=== PATIENT | female | born 1945 | race Caucasian/White ===

== ENCOUNTER 2023-12-30 20:38 | Inpatient (IN) | payer MEDICARE, OTHER ==
[~2023-12-30] VITALS: Ht 157.5 cm; Wt 68.9 kg
[2023-12-30 20:50] VITALS: BP 144/65; TEMP 94.4; O2SAT 94
[2023-12-30] MEDS ORDERED: MORPHINE SULFATE INJ 4 MG/ML DISP.SYRIN IV PRN (22:00)
[2023-12-30] MEDS ORDERED: INSULIN REGULAR, HUMAN 100 UNIT/ML 10 ML VIAL SQ SCH (22:00)
[2023-12-30] MEDS ORDERED: ONDANSETRON HCL/PF 4 MG/2 ML VIAL IVP PRN (22:00)
[2023-12-30] MEDS ORDERED: Z GUARD REMEDY 4 OZ OINT TP PRN (22:00)
[2023-12-30] MEDS: BLOOD SUGAR DIAGNOSTIC 1 EACH STRIP IN SCH ×2 (22:51→23:23)
[2023-12-30] MEDS: IV D5/0.45 NACL 1,000 ML IV PRN (22:57)
[2023-12-30] MEDS ORDERED: DEXTROSE 50%-WATER 50 ML DISP.SYRIN IV PRN (23:00)
[2023-12-30] MEDS: INSULIN REGULAR, HUMAN 100 UNIT/ML 3 ML VIAL SQ PRN (23:30)
[2023-12-31 05:58] LABS: BASOPHILS % (AUTO) 0.1 % (0.0-2.0); EOSINOPHILS % (AUTO) 0.3 % (0.0-6.0); HEMATOCRIT 29 % (33-45); HEMOGLOBIN 9.9 g/dL (11.5-14.8); LYMPHOCYTES # (AUTO) 0.3 K/uL (0.8-4.8); LYMPHOCYTES % (AUTO) 4.4 % (20.0-44.0); MEAN CORPUSCULAR HEMOGLOBIN 34 PG (26.0-33.0); MEAN CORPUSCULAR HGB CONC 34 g/dl (31.0-36.0); MEAN CORPUSCULAR VOLUME 99 fL (82-100); MONOCYTES # (AUTO) 0.5 K/uL (0.1-1.30); NEUTROPHILS # (AUTO) 6.8 K/uL (1.8-8.9); NEUTROPHILS % (AUTO) 88.2 % (43.0-81.0); PLATELET COUNT (AUTO) 166 K/uL (150-450); RED BLOOD CELL COUNT(AUTO) 2.94 MIL/uL (4.0-5.2); RED CELL DISTRIBUTION WIDTH 14.8 % (11.5-15.0); WHITE BLOOD COUNT (AUTO) 7.8 K/uL (4.3-11.0)
[2023-12-31 06:30] LABS: ALANINE AMINOTRANSFERASE 22 U/L (12-78); ALBUMIN 2.5 g/dL (3.4-5.0); ALKALINE PHOSPHATASE 75 U/L (46-116); ASPARTATE AMINOTRANSFERASE 28 U/L (15-37); BILIRUBIN,DIRECT 0.7 mg/dL (0.0-0.2); BILIRUBIN,TOTAL 1.8 mg/dL (0.2-1.0); CARBON DIOXIDE 24 mmol/L (21-32); CHLORIDE 97 mmol/L (98-107); GLUCOSE 322 mg/dL (74-106); LIPASE 75 U/L (16-77); PHOSPHORUS 2.8 mg/dL (2.5-4.9); POTASSIUM 4.7 mmol/L (3.5-5.1); SODIUM SERUM 127 mmol/L (136-145); TOTAL PROTEIN, SERUM 5.8 g/dL (6.4-8.2); UREA NITROGEN, BLOOD 12 mg/dL (7-18)
[2023-12-31 06:33] LABS: CHOLESTEROL 109 mg/dL (<200); HDL CHOLESTEROL 20 mg/dL (40-60); LDL 65 mg/dL (0-99); TRIGLYCERIDES 141 mg/dL (30-150)
[2023-12-31 06:48] LABS: CREATININE 0.9 mg/dL (0.6-1.3)
[2023-12-31 06:55] LABS: MAGNESIUM 0.8 mg/dL (1.8-2.4)
[2023-12-31 08:00] VITALS: BP 131/51; TEMP 98.2; O2SAT 95
[2023-12-31] MEDS: PANTOPRAZOLE 40 MG VIAL IV SCH (08:26)
[2023-12-31] MEDS ORDERED: LOSA100T31 PO (09:54)
[2023-12-31] MEDS ORDERED: HYDR12.55 PO (09:54)
[2023-12-31] MEDS ORDERED: INSU3INS9 SQ (09:54)
[2023-12-31] MEDS ORDERED: DEXL60CA3 PO (09:54)
[2023-12-31] MEDS ORDERED: ASPI-1420 PO (09:54)
[2023-12-31] MEDS ORDERED: ALIR75PE SQ (09:54)
[2023-12-31] MEDS ORDERED: LIPA1CAP10 PO (09:54)
[2023-12-31] MEDS ORDERED: METO-357 PO (09:54)
[2023-12-31] MEDS ORDERED: GLIM4TAB37 PO (09:54)
[2023-12-31] MEDS ORDERED: LINA145C PO (09:54)
[2023-12-31] MEDS ORDERED: ATOR40TA PO (09:54)
[2023-12-31] MEDS ORDERED: SITA1TAB6 PO (09:54)
[2023-12-31] MEDS ORDERED: ICOS1CAP PO (09:54)
[2023-12-31 13:58] LABS: URINE SODIUM, RANDOM 38 mmol/l (40-220)
[2023-12-31 16:00] VITALS: BP 129/61; TEMP 98.6; O2SAT 95
[2023-12-31 20:00] VITALS: BP 105/46; TEMP 98.6; O2SAT 97
[2024-01-01 06:33] LABS: BASOPHILS % (AUTO) 0.4 % (0.0-2.0); EOSINOPHILS # (AUTO) 0.1 K/uL (0.0-0.7); EOSINOPHILS % (AUTO) 1.4 % (0.0-6.0); HEMATOCRIT 31 % (33-45); HEMOGLOBIN 10.5 g/dL (11.5-14.8); LYMPHOCYTES # (AUTO) 1.3 K/uL (0.8-4.8); LYMPHOCYTES % (AUTO) 20.2 % (20.0-44.0); MEAN CORPUSCULAR HEMOGLOBIN 33 PG (26.0-33.0); MEAN CORPUSCULAR HGB CONC 34 g/dl (31.0-36.0); MEAN CORPUSCULAR VOLUME 99 fL (82-100); MONOCYTES # (AUTO) 0.5 K/uL (0.1-1.30); MONOCYTES % (AUTO) 8.2 % (2.0-12.0); NEUTROPHILS # (AUTO) 4.4 K/uL (1.8-8.9); NEUTROPHILS % (AUTO) 69.8 % (43.0-81.0); PLATELET COUNT (AUTO) 175 K/uL (150-450); RED BLOOD CELL COUNT(AUTO) 3.15 MIL/uL (4.0-5.2); RED CELL DISTRIBUTION WIDTH 14.6 % (11.5-15.0); WHITE BLOOD COUNT (AUTO) 6.3 K/uL (4.3-11.0)
[2024-01-01 06:52] LABS: ALANINE AMINOTRANSFERASE 35 U/L (12-78); ALBUMIN 2.6 g/dL (3.4-5.0); ALKALINE PHOSPHATASE 72 U/L (46-116); BILIRUBIN,TOTAL 1.6 mg/dL (0.2-1.0); CALCIUM, SERUM 9.6 mg/dL (8.5-10.1); CARBON DIOXIDE 22 mmol/L (21-32); CHLORIDE 102 mmol/L (98-107); CREATININE 0.8 mg/dL (0.6-1.3); GLUCOSE 255 mg/dL (74-106); PHOSPHORUS 2.3 mg/dL (2.5-4.9); POTASSIUM 4.6 mmol/L (3.5-5.1); SODIUM SERUM 131 mmol/L (136-145); TOTAL PROTEIN, SERUM 5.9 g/dL (6.4-8.2); UREA NITROGEN, BLOOD 10 mg/dL (7-18)
[2024-01-01 07:00] VITALS: BP 126/67; TEMP 98.4; O2SAT 94
[2024-01-01 07:19] LABS: ASPARTATE AMINOTRANSFERASE 44 U/L (15-37)
[2024-01-01] MEDS: diphenhydrAMINE HCL 50 MG/ML VIAL IV ONE (09:46)
[2024-01-01] MEDS: Magnesium 1GM/D5W 100ML PREMIX 100 ML IV SCH (11:17)
[2024-01-01] MEDS ORDERED: MVI-12 10ML IV ONE (13:00)
[2024-01-01 13:30] VITALS: BP 129/66; TEMP 98.4; O2SAT 97
[2024-01-01] MEDS: NEUTRA PHOS 1 POWD.PACKET PO ONE (15:43)
[2024-01-01 16:00] VITALS: BP 126/66; TEMP 98.4; O2SAT 97
[2024-01-01 20:00] VITALS: BP_SYST 138; BP_SYST 144; BP_DIAS 51; BP_DIAS 64; TEMP 98.1; TEMP 98.2; O2SAT 96
[2024-01-01 20:30] VITALS: BP 144/51; TEMP 98.1; O2SAT 96
[2024-01-02 07:55] LABS: BASOPHILS % (AUTO) 0.4 % (0.0-2.0); EOSINOPHILS # (AUTO) 0.1 K/uL (0.0-0.7); EOSINOPHILS % (AUTO) 1.6 % (0.0-6.0); HEMATOCRIT 30 % (33-45); HEMOGLOBIN 10.3 g/dL (11.5-14.8); LYMPHOCYTES # (AUTO) 1.3 K/uL (0.8-4.8); MEAN CORPUSCULAR HEMOGLOBIN 34 PG (26.0-33.0); MEAN CORPUSCULAR HGB CONC 34 g/dl (31.0-36.0); MEAN CORPUSCULAR VOLUME 99 fL (82-100); MONOCYTES # (AUTO) 0.5 K/uL (0.1-1.30); MONOCYTES % (AUTO) 8.9 % (2.0-12.0); NEUTROPHILS # (AUTO) 3.9 K/uL (1.8-8.9); NEUTROPHILS % (AUTO) 66.1 % (43.0-81.0); PLATELET COUNT (AUTO) 181 K/uL (150-450); RED BLOOD CELL COUNT(AUTO) 3.05 MIL/uL (4.0-5.2); RED CELL DISTRIBUTION WIDTH 14.9 % (11.5-15.0); WHITE BLOOD COUNT (AUTO) 5.9 K/uL (4.3-11.0)
[2024-01-02] MEDS: MULTIVITAMINS,THERAGRAN 1 UDTAB TABLET PO SCH (08:25)
[2024-01-02 08:33] VITALS: BP 142/64; TEMP 98; O2SAT 97
[2024-01-02 08:52] LABS: ALANINE AMINOTRANSFERASE 37 U/L (12-78); ALBUMIN 2.6 g/dL (3.4-5.0); ALKALINE PHOSPHATASE 80 U/L (46-116); ASPARTATE AMINOTRANSFERASE 43 U/L (15-37); BILIRUBIN,DIRECT 0.9 mg/dL (0.0-0.2); BILIRUBIN,TOTAL 1.7 mg/dL (0.2-1.0); CALCIUM, SERUM 9.5 mg/dL (8.5-10.1); CARBON DIOXIDE 22 mmol/L (21-32); CHLORIDE 107 mmol/L (98-107); CREATININE 0.7 mg/dL (0.6-1.3); GLUCOSE 187 mg/dL (74-106); MAGNESIUM 1.3 mg/dL (1.8-2.4); POTASSIUM 4.6 mmol/L (3.5-5.1); SODIUM SERUM 139 mmol/L (136-145); TOTAL PROTEIN, SERUM 5.9 g/dL (6.4-8.2); UREA NITROGEN, BLOOD 6 mg/dL (7-18)
[2024-01-02] MEDS: Magnesium 1GM/D5W 100ML PREMIX 100 ML IV SCH (09:49)
[2024-01-02] MEDS ORDERED: DIATR MEGLU/DIATRIZOATE SODIUM 30 ML BOTTLE (GASTROGRAPHIN) ONE (11:14)
[2024-01-02] MEDS: ZOSYN IVPB 3.375 G in IV D5W 50ml IV SCH (12:09)
[2024-01-02 16:06] VITALS: BP 146/82; TEMP 97.7; O2SAT 95
[2024-01-02 20:00] VITALS: BP 142/66; TEMP 97.3; O2SAT 97
[2024-01-03 06:58] LABS: BASOPHILS % (AUTO) 0.2 % (0.0-2.0); EOSINOPHILS # (AUTO) 0.1 K/uL (0.0-0.7); EOSINOPHILS % (AUTO) 1.7 % (0.0-6.0); HEMATOCRIT 30 % (33-45); HEMOGLOBIN 10.3 g/dL (11.5-14.8); LYMPHOCYTES # (AUTO) 1.3 K/uL (0.8-4.8); MEAN CORPUSCULAR HEMOGLOBIN 34 PG (26.0-33.0); MEAN CORPUSCULAR HGB CONC 34 g/dl (31.0-36.0); MEAN CORPUSCULAR VOLUME 98 fL (82-100); MONOCYTES # (AUTO) 0.6 K/uL (0.1-1.30); MONOCYTES % (AUTO) 9.6 % (2.0-12.0); NEUTROPHILS # (AUTO) 3.8 K/uL (1.8-8.9); NEUTROPHILS % (AUTO) 65.5 % (43.0-81.0); PLATELET COUNT (AUTO) 183 K/uL (150-450); RED BLOOD CELL COUNT(AUTO) 3.03 MIL/uL (4.0-5.2); RED CELL DISTRIBUTION WIDTH 14.6 % (11.5-15.0); WHITE BLOOD COUNT (AUTO) 5.8 K/uL (4.3-11.0)
[2024-01-03 08:00] VITALS: BP 144/83; TEMP 98.4; O2SAT 96
[2024-01-03 08:00] LABS: ALANINE AMINOTRANSFERASE 33 U/L (12-78); ALBUMIN 2.6 g/dL (3.4-5.0); ALKALINE PHOSPHATASE 79 U/L (46-116); ASPARTATE AMINOTRANSFERASE 37 U/L (15-37); BILIRUBIN,TOTAL 1.8 mg/dL (0.2-1.0); CALCIUM, SERUM 9.8 mg/dL (8.5-10.1); CARBON DIOXIDE 23 mmol/L (21-32); CHLORIDE 103 mmol/L (98-107); CREATININE 0.9 mg/dL (0.6-1.3); GLUCOSE 256 mg/dL (74-106); POTASSIUM 4.4 mmol/L (3.5-5.1); SODIUM SERUM 135 mmol/L (136-145); TOTAL PROTEIN, SERUM 5.8 g/dL (6.4-8.2); UREA NITROGEN, BLOOD 3 mg/dL (7-18)
[2024-01-03] MEDS ORDERED: ALIROCUMAB 75 MG SQ SCH (13:00)
[2024-01-03 16:00] VITALS: BP 153/80; TEMP 98.8; O2SAT 96
[2024-01-03 16:39] VITALS: BP 153/80
[2024-01-03] MEDS: METOPROLOL SUCCINATE 50 MG TAB.SR.24H PO SCH (16:39)
[2024-01-03] MEDS ORDERED: Medication Not On Formulary EA (Icosapent Ethyl (Vascepa) 2 GM) PO SCH (17:00)
[2024-01-04] MEDS ORDERED: LOSARTAN POTASSIUM 50 MG TABLET PO SCH (09:00)
[2024-01-04] MEDS ORDERED: Medication Not On Formulary EA (Linaclotide (Linzess) 145 MCG) PO SCH (09:00)
[2024-01-04] MEDS ORDERED: HYDROCHLOROTHIAZIDE 25 MG TABLET PO SCH (09:00)
[2024-01-04] MEDS ORDERED: Medication Not On Formulary EA (Insulin Glargine/Lixisenatide (Soliqua 100 Unit-33 Mcg/m SQ SCH (09:00)
[2024-01-04] MEDS ORDERED: ASPIRIN EC 81 MG TABLET.DR PO SCH (09:00)
[2024-01-04] MEDS ORDERED: PANTOPRAZOLE 40 MG TABLET.DR PO SCH (09:00)
== END 2024-01-03 17:15 | disposition short-term general hospital (02) | DRG 445 ==
LOC: MED 20:38
PROVIDERS: ADMIT Nurse Practitioner Family; ATTEND Student in an Organized Health Care Education/Training Program
DX: K80.66 Calculus of gallbladder and bile duct with acute and chronic cholecystitis without obstruction (principal); E44.0 Moderate protein-calorie malnutrition; E87.1 Hypo-osmolality and hyponatremia; R17 Unspecified jaundice; E11.9 Type 2 diabetes mellitus without complications; D63.8 Anemia in other chronic diseases classified elsewhere; E66.9 Obesity, unspecified; E78.5 Hyperlipidemia, unspecified; E83.42 Hypomagnesemia; I10 Essential (primary) hypertension; I35.0 Nonrheumatic aortic (valve) stenosis; Z79.84 Long term (current) use of oral hypoglycemic drugs; Z79.4 Long term (current) use of insulin; Z68.27 Body mass index [BMI] 27.0-27.9, adult; E86.1 Hypovolemia
CPT/HCPCS: 36415; 71045-TC; 74181-TC; 76700-TC; 80048-TC; 80053-TC; 80061-TC; 80076-TC; 82962-TC; 83690-TC; 83735-TC; 83935-TC; 84100-TC; 84300-TC; 84443-TC; 84484-TC; 84550-TC; 85025-TC; 93307-TC; A4223; G0378; J1200; J1815; J2470; J2543; J3475; J3490; J7060; Q9963